=== PATIENT | female | born 1995 ===

== ENCOUNTER 2018-08-15 07:46 | Emergency (ER) | payer SELFPAY ==
[2018-08-15 08:01] VITALS: BP 110/76
--- NOTE | 2018-08-15 08:41 | UC ---
Bite Injury/Animal HPI - HPI Summary HPI Summary: patient was caring for a post surgical cat and was bitten on L hand approx 7 hours ago. 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 PW L hand with minor swelling and ecchymosis. Tdap UTD 2013 - History of Current Complaint Chief Complaint: UCBiteInjury Stated Complaint: CAT BITE Time Seen by Provider: 08/15/18 08:04 Hx Obtained From: Patient Hx Last Menstrual Period: 1 WEEK AGO ?: No Pain Intensity: 0 Onset/Duration: Sudden Onset Type of Bite: Animal - cat in vet school Has Animal Been Immunized?: Yes - 2 days ago Aggravating Factor(s): Nothing Alleviating Factor(s): Nothing Hx of Bite: Provoked by: - post op cat Animal Available for Observation: Yes - Allergies/Home Medications Allergies/Adverse Reactions: Allergies Allergy/AdvReac Type Severity Reaction Status Date / Time No Known Allergies Allergy Verified 08/15/18 07:55 Home Medications: Home Medications Bcp 1 tab PO DAILY 08/15/18 [History] PMH/Surg Hx/FS Hx/Imm Hx Previously Healthy: Yes - Surgical History Surgical History: Yes Surgery Procedure, Year, and Place: R knee reconstruction August 2016 - Family History Known Family History: Positive: None - Social History Occupation: Student Lives: With Family Alcohol Use: Rare Substance Use Type: None Smoking Status (MU): Never Smoked Tobacco - Immunization History Vaccination Up to Date: Yes Review of Systems All Other Systems Reviewed And Are Negative: Yes Constitutional: Positive: Negative Skin: Positive: Other - bite wound L hand Respiratory: Positive: Negative Cardiovascular: Positive: Negative Neurological: Positive: Negative Psychological: Positive: Negative Is Patient Immunocompromised?: No Physical Exam Triage Information Reviewed: Yes Appearance: Well-Appearing, No Pain Distress, Well-Nourished Vital Signs: Initial Vital Signs Temp 99.7 F 08/15/18 07:56 Pulse 93 08/15/18 07:56 Resp 18 08/15/18 07:56 BP 110/76 08/15/18 07:56 Pulse Ox 100 08/15/18 07:56 Vital Signs Reviewed: Yes Respiratory Exam: Normal Respiratory: Positive: Lungs clear Cardiovascular Exam: Normal Musculoskeletal Exam: Normal Psychological Exam: Normal Skin: Positive: Other - cat bite PW L hand Bite Injury Course/Dx - Course Course Of Treatment: discussed case with dr. Tay, hayes vazquez [facility] He states protocol: conf[facility] for 10 days and monitor[facility] A bite report was initiated here. Lengthy discussion with pt concerning all information, pt given written information for UpToDate for current Rabies guidelines as well Patient requests Rabies Vaccine be given here. She is aware that [facility] Department will not cover cost of vaccine - Differential Dx/Diagnosis Differential Diagnosis/HQI/PQRI: Puncture, Rabies Exposure Provider Diagnosis: Cat bite of hand Discharge - Sign-Out/Discharge Documenting (check all that apply): Patient Departure All imaging exams completed and their final reports reviewed: No Studies - Discharge Plan Condition: Good Disposition: HOME Prescriptions: Amoxicillin/Clavulanate TAB* [Augmentin TAB 875*] 875 mg PO BID #20 tab Fluconazole 150 MG (NF) [Diflucan 150 mg (NF)] 150 mg PO ONCE #2 tab Patient Education Materials: Animal Bite (ED) Referrals: [facility] - [facility] [Z.BUSINESS, APPLICATION, OTHER] - 2 Days No Primary Care Phys,NOPCP [Primary Care Provider] - Additional Instructions: Return here 08/18/18 for second dose Rabies vaccine (or call Critical access hospital services if available there) start Augmentin today, keep wound clean and dry. Use diflucan if you experience signs vaginal yeast infection Your provider today was Gayla Velasquez, LIAN, SPLICER MACHINE OPERATOR-BC - Billing Disposition and Condition Condition: GOOD Disposition: Home
[2018-08-15] MEDS ORDERED: Rabies VIRUS VACCINE (Imovax)* 2.5 UNIT/ML 1 ML IM ONE (09:24)
== END 2018-08-15 10:00 | disposition home or self-care (01) ==
LOC: UCEAST 07:46
DX: S61.432A Puncture wound without foreign body of left hand, initial encounter (principal); W55.01XA Bitten by cat, initial encounter; Y93.K9 Activity, other involving animal care; Y92.9 Unspecified place or not applicable; Y99.8 Other external cause status; Z23 Encounter for immunization
CPT/HCPCS: 90471; 99202; G0463

== ENCOUNTER 2018-08-18 07:44 | Emergency (ER) | payer SELFPAY ==
[2018-08-18 07:53] VITALS: BP 108/61
[2018-08-18] MEDS ORDERED: Rabies VIRUS VACCINE (Imovax)* 2.5 UNIT/ML 1 ML IM ONE (08:31)
--- NOTE | 2018-08-18 08:37 | UC ---
Bite Injury/Animal HPI - HPI Summary HPI Summary: PATIENT SUSTAINED A CAT BITE TO HER LEFT HAND 3 DAYS AGO. THE CAT WAS A STRAY. 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 RECEIVED HER FIRST BOOSTER SHOT 3 DAYS AGO HERE IN THE AND IS HERE FOR HER SECOND BOOSTER SHOT. PER THE PREVIOUS NOTE THESE WILL NOT BE COVERED BY THE HEALTH DEPARTMENT THE ANIMAL IS AVAILABLE FOR OBSERVATION, HOWEVER THE PATIENT WAS NOT COMFORTABLE WITH THIS AND SO IS PAYING OUT OF POCKET FOR HER BOOSTER SHOTS. - History of Current Complaint Chief Complaint: UCBiteInjury Stated Complaint: RABIES Time Seen by Provider: 08/18/18 07:59 Hx Obtained From: Patient Hx Last Menstrual Period: 1 WEEK AGO Severity Currently: Moderate Severity Initially: Mild Pain Intensity: 0 Pain Scale Used: 0-10 Numeric Onset/Duration: Sudden Onset, Lasting Days Type of Bite: Animal Has Animal Been Immunized?: Yes - HAD ONLY BEEN IMMUNIZED 2 DAYS BEFORE THE BITE INCIDENT Character: Puncture Associated Signs And Symptoms: Negative: Fever, Erythema, Drainage, Swelling Animal Available for Observation: Yes Animal Control Notified: Yes - Allergies/Home Medications Allergies/Adverse Reactions: Allergies Allergy/AdvReac Type Severity Reaction Status Date / Time No Known Allergies Allergy Verified 08/15/18 07:55 PMH/Surg Hx/FS Hx/Imm Hx Previously Healthy: Yes - Surgical History Surgical History: Yes Surgery Procedure, Year, and Place: R knee reconstruction August 2016 - Family History Known Family History: Positive: None - Social History Alcohol Use: Rare Substance Use Type: None Smoking Status (MU): Never Smoked Tobacco - Immunization History Vaccination Up to Date: Yes Review of Systems All Other Systems Reviewed And Are Negative: Yes Constitutional: Positive: Negative Skin: Positive: Other - LAURA BIT LEFT HAND Respiratory: Positive: Negative Cardiovascular: Positive: Negative Gastrointestinal: Positive: Negative Physical Exam Triage Information Reviewed: Yes Appearance: Well-Appearing, No Pain Distress, Well-Nourished Vital Signs: Initial Vital Signs Temp 99.1 F 08/18/18 07:48 Pulse 75 08/18/18 07:48 Resp 18 08/18/18 07:48 BP 108/61 08/18/18 07:48 Pulse Ox 99 08/18/18 07:48 Vital Signs Reviewed: Yes Eyes: Positive: Conjunctiva Clear ENT: Positive: Hearing grossly normal Neck: Positive: Supple Respiratory: Positive: No respiratory distress, No accessory muscle use Cardiovascular: Positive: Pulses Normal Abdomen Description: Positive: Soft Musculoskeletal: Positive: No Edema Neurological: Positive: Alert Psychological: Positive: Age Appropriate Behavior Skin: Positive: Other - PUNCTURE WOUND HEALING WELL LEFT 1ST INTERDIGITAL WEBSPACE Bite Injury Course/Dx - Course Course Of Treatment: 2ND RABIES BOOSTER ADMINISTERED BY RN TODAY. PT WILL CONTINUE TO FOLLOW WITH THE HEALTH DEPARTMENT. - Differential Dx/Diagnosis Provider Diagnosis: Rabies, need for prophylactic vaccination against Discharge - Sign-Out/Discharge Documenting (check all that apply): Patient Departure All imaging exams completed and their final reports reviewed: No Studies - 32 - Discharge Plan Condition: Stable Disposition: HOME Patient Education Materials: Rabies Vaccine (ED) Referrals: No Primary Care Phys,NOPCP [Primary Care Provider] - Additional Instructions: YOU RECEIVED YOUR SECOND RABIES BOOSTER SHOT TODAY. CONTINUE TO FOLLOW-UP WITH THE HEALTH DEPARTMENT CONCERNING ANY FURTHER STEPS THAT MAY NEED TO BE TAKEN. CONTINUE YOUR ANTIBIOTICS TO COMPLETE COURSE. CALL THE NUMBER BELOW FOR ASSISTANCE IN ESTABLISHING WITH A PCP An additional resource available to assist in finding the appropriate physician for your health care needs is the [facility] ([facility]). You may contact them by calling [phone]. - Billing Disposition and Condition Condition: STABLE Disposition: Home
== END 2018-08-18 08:59 | disposition home or self-care (01) ==
LOC: UCEAST 07:44
DX: Z20.3 Contact with and (suspected) exposure to rabies (principal); Z23 Encounter for immunization
CPT/HCPCS: 90471; 99211; G0463